=== PATIENT | female | born 1990 | race Caucasian/White ===

== ENCOUNTER 2019-08-26 14:38 | Emergency (ER) | payer OTHER ==
--- NOTE | 2019-08-26 15:35 | UC ---
Skin Complaint HPI - HPI Summary HPI Summary: 29 yo female presents with rash. She tells me that for the last month she has had a small red scab-like appearing rash to her arms, legs, and torso that is very itchy. Itch is worse at night. States that she lives in a shelter house and is checked monthly for bed bugs and last check was clean. She has not tried anything OTC. No new soaps, detergents, or environments. Denies fever or recent illness. - History of Current Complaint Time Seen by Provider: 08/26/19 15:34 Stated Complaint: SKIN COMP Hx Obtained From: Patient Hx Last Menstrual Period: 07/31/15 Onset/Duration: Sudden Onset Onset Severity: Mild Current Severity: Mild Pain Intensity: 2 Pain Scale Used: 0-10 Numeric - Allergy/Home Medications Allergies/Adverse Reactions: Allergies Allergy/AdvReac Type Severity Reaction Status Date / Time seasonal Allergy Unknown Unknown Uncoded 08/26/19 15:31 Reaction Details Home Medications: Home Medications Biotin [Biotin Maximum Strength] 10,000 mcg PO DAILY 08/26/19 [History Confirmed 08/26/19] Cetirizine* [ZyrTEC 10 MG TAB*] 10 mg PO DAILY 08/26/19 [History Confirmed 08/26] Cyclobenzaprine TAB* [Flexeril 10 MG TAB*] 10 mg PO DAILY 08/26/19 [History Confirmed 08/26/19] Melatonin 5 mg PO BEDTIME 08/26/19 [History Confirmed 08/26/19] Meloxicam 7.5 mg PO DAILY 08/26/19 [History Confirmed 08/26/19] Omeprazole 40 mg PO DAILY 08/26/19 [History Confirmed 08/26/19] Polyethylene Glycol 3350* [Miralax*] 17 gm PO DAILY PRN 08/26/19 [History Confirmed 08/26/19] Sucralfate TAB* [Carafate*] 1 gm PO QID 08/26/19 [History Confirmed 08/26/19] Varenicline (NF) [Chantix 1 MG TAB (NF)] 1 mg PO BID 08/26/19 [History Confirmed 08/26/19] Venlafaxine EXT RELEASE CAP* [Effexor Xr CAP*] 150 mg PO BID 08/26/19 [History Confirmed 08/26/19] lamoTRIgine TAB(*) [LaMICtal TAB(*)] 100 mg PO BID 08/26/19 [History Confirmed 08/26/19] PMH/Surg Hx/FS Hx/Imm Hx Psychological History: Anxiety, Depression - Surgical History Surgical History: None - Family History Known Family History: Positive: None - Social History Lives: With Family Alcohol Use: Rare Substance Use Type: None Smoking Status (MU): Heavy Every Day Tobacco Smoker - Immunization History Most Recent Influenza Vaccination: none Review of Systems All Other Systems Reviewed And Are Negative: No Constitutional: Positive: Negative Skin: Positive: Rash Respiratory: Positive: Negative Cardiovascular: Positive: Negative Neurological: Positive: Negative Psychological: Positive: Negative Physical Exam - Summary Physical Exam Summary: GENERAL: NAD. WDWN. No pain distress. SKIN: Scattered 1-2mm excoriated scabs on b/l arms, hands, torso, back, buttocks , and legs. No abscess, pustules, edema, or drainage. NECK: Supple. Nontender. No lymphadenopathy. CHEST: No accessory muscle use. Breathing comfortably and in no distress. CV: Pulses intact. Cap refill <2seconds NEURO: Alert. PSYCH: Age appropriate behavior. Triage Information Reviewed: Yes Vital Signs: Vital Signs: Temp Pulse Resp BP Pulse Ox 98 F 99 18 139/87 98 08/26/19 15:35 08/26/19 15:35 08/26/19 15:35 08/26/19 15:35 08/26/19 15:35 Vital Signs Reviewed: Yes Course/Dx - Course Course Of Treatment: Suspect scabies. Will rx for permethrin and have her be rechecked if symptoms do not improve - Diagnoses Provider Diagnosis: Scabies Discharge ED - Sign-Out/Discharge Documenting (check all that apply): Patient Departure All imaging exams completed and their final reports reviewed: No Studies - Discharge Plan Condition: Stable Disposition: HOME Prescriptions: Permethrin 5% CREAM* 1 applic TOPICAL SEE INSTRUCTIONS #2 tube Patient Education Materials: Scabies (ED) Referrals: Ritchie Pastrana MD [Primary Care Provider] - Additional Instructions: If you develop a fever, shortness of breath, chest pain, new or worsening symptoms - please call your PCP or go to the ED immediately. Your blood pressure was mildly elevated at todays visit. Please see your primary provider within 4 weeks for recheck and re-evaluation. - Billing Disposition and Condition Condition: STABLE Disposition: Home
[2019-08-26 15:42] VITALS: BP 139/87
== END 2019-08-26 16:07 | disposition home or self-care (01) ==
LOC: UCCORT 14:38
DX: B86 Scabies (principal); F41.9 Anxiety disorder, unspecified; F32.9 Major depressive disorder, single episode, unspecified; F17.200 Nicotine dependence, unspecified, uncomplicated; Z91.09 Other allergy status, other than to drugs and biological substances; Z79.899 Other long term (current) drug therapy
CPT/HCPCS: 99212; G0463

== ENCOUNTER 2023-04-04 08:56 | Inpatient (IN) ==
[~2023-04-04 08:56] MED LIST: Buffered Lidocaine 1% SYRIN 1 ml INTRADERM ONE; Lactated Ringers 1000 ml BAG 1,000 ML IV SCH; Naloxone 0.4 mg VIAL 0.4 mg/ml 1 ml VIAL IV PRN; Prochlorperazine 5 mg/ml 2 ml VIAL (10 mg) IV PRN
[2023-04-04] MEDS ORDERED: Dexamethasone IV 4 MG/ML VIAL 1 ml VIAL ONE (09:15)
[2023-04-04] MEDS ORDERED: Ondansetron 4 mg VIAL 2 MG/ML 2 ml VIAL ONE (09:15)
[2023-04-04] MEDS ORDERED: Acetaminophen IV 1 GM/100ML 1,000 MG/100 ML BAG IV ONE (09:15)
[2023-04-04] MEDS ORDERED: Metoclopramide 5 MG/ML VIAL (10 mg) ONE (09:15)
[2023-04-04] MEDS ORDERED: Propofol 10 MG/ML 20 ML BTL ONE ×2 (09:15→13:42)
[2023-04-04] MEDS ORDERED: HYDROmorphone 0.5 MG/0.5 ML SYRINGE ONE (09:16)
[2023-04-04] MEDS ORDERED: Rocuronium 50 mg VIAL 10 mg/ml 5 ml VIAL (50 mg) ONE (09:16)
[2023-04-04] MEDS ORDERED: fentaNYL 250 mcg/5 ml 50 MCG/ML 5 ml VIAL (250 MCG) ONE (09:16)
[2023-04-04] MEDS ORDERED: ceFAZolin *3* GM in NS PREMIX 3 GM/100 ML BAG IV ONE (09:24)
[2023-04-04] MEDS ORDERED: Scopolamine 1 mg/72hr PATCH ONE (09:24)
[2023-04-04] MEDS ORDERED: Heparin 5000 UNITS/ML 1 mL VIAL ONE (09:24)
[2023-04-04 09:34] LABS: Rapid COVID-19 Molecular Undetected (Undetected)
[2023-04-04] MEDS ORDERED: Bupivacaine 0.25% SDV 30 ML ONE (10:22)
[2023-04-04] MEDS ORDERED: Methylene Blue 0.5 % 50 MG/10 ML AMP IV ONE (10:22)
[2023-04-04] MEDS ORDERED: ROPIVACAINE 5 MG/ML 30 ML BTL (0.5%) ONE (11:02)
[2023-04-04] MEDS ORDERED: Lidocaine 2% w/ EPI 1:200,000 MPF 20 ML SDV VIAL ONE ×2 (11:05→11:07)
[2023-04-04] MEDS ORDERED: Lidocaine 4% TOPICAL 50 ML TOP.SOLN ONE (11:06)
[2023-04-04] MEDS ORDERED: Metoprolol Tartrate 5 mg VIAL 5 ml VIAL (1 mg/ml) ONE ×2 (11:51→13:09)
[2023-04-04] MEDS ORDERED: hydrALAZINE 20 mg/ml 1 ML Vial IV ONE (13:08)
[2023-04-04] MEDS ORDERED: fentaNYL 100 mcg/2 ml 50 MCG/ML VIAL ONE ×3 (14:37→16:51)
[2023-04-04] MEDS ORDERED: HYDROmorphone 1 MG/1 ML SYRINGE IV SLOW PU PRN (15:28)
[2023-04-04] MEDS ORDERED: HYDROmorphone 0.5 MG/0.5 ML SYRINGE IV SLOW PU PRN (15:28)
[2023-04-04] MEDS ORDERED: HYDROmorphone 1 MG/1 ML SYRINGE ONE ×2 (16:13→16:30)
[2023-04-04] MEDS: HYDROmorphone 1 MG/1 ML SYRINGE IV PRN ×4 (16:14→16:38)
[2023-04-04] MEDS ORDERED: Prochlorperazine 5 mg/ml 2 ml VIAL (10 mg) ONE (16:16)
[2023-04-04] MEDS: fentaNYL 100 mcg/2 ml 50 MCG/ML VIAL IV PRN ×4 (16:52→17:05)
[2023-04-04] MEDS: Lactated Ringers 1000 ml BAG 1,000 ML IV SCH (19:30)
[2023-04-04] MEDS: Acetaminophen IV 1 GM/100ML 1,000 MG/100 ML BAG IV SCH (20:22)
[2023-04-04] MEDS: Heparin 5000 UNITS/ML 1 mL VIAL SUBCUT SCH (21:23)
[2023-04-05] MEDS: Acetaminophen IV 1 GM/100ML 1,000 MG/100 ML BAG IV SCH ×3 (01:23→13:04)
[2023-04-05] MEDS: Lactated Ringers 1000 ml BAG 1,000 ML IV SCH ×2 (02:06→08:52)
[2023-04-05] MEDS: Heparin 5000 UNITS/ML 1 mL VIAL SUBCUT SCH ×2 (06:48→13:42)
[2023-04-05 10:58] VITALS: BP 140/87
[2023-04-05] MEDS: CMC:Vilazodone 40 mg TAB (NF) PO SCH ×2 (13:02→13:13)
[2023-04-05] MEDS ORDERED: D5W 1/2 NS KCl 20 meq 1000 ml 1,000 ML IV SCH (16:00)
== END 2023-04-05 15:15 | disposition home or self-care (01) | DRG 403 ==
LOC: AA 08:56 → SSU 18:10
PROVIDERS: ADMIT Surgery; ATTEND Surgery